=== PATIENT | female | born 1970 | race Caucasian/White ===

== ENCOUNTER → 2017-05-28 10:48 | Outpatient (POV) | payer MEDICAID, SELFPAY | PROVIDERS: Family Provider Internal Medicine Adolescent Medicine; PCP Internal Medicine Adolescent Medicine; Visit Provider Otolaryngology | DX: Z00.00 Encounter for general adult medical examination without abnormal findings (principal) ==

== ENCOUNTER → 2018-01-15 11:13 | Outpatient (CLI) | payer MEDICAID, SELFPAY ==
--- NOTE | 2018-01-15 11:19 | XR_ITS ---
XR foot RT min 3V HISTORY: ITS.REASON: BILAT FOOT PAIN ORDERING PHYSICIAN: Chni Bob MD PATIENT AGE: 47 years COMPARISON: None FINDINGS: No fracture or dislocation. No lytic or blastic change. There is normal mineralization.. The joint spaces are well-preserved. No significant degenerative/arthritic changes. No erosive changes evident. IMPRESSION: Negative, no acute finding
--- NOTE | 2018-01-15 11:19 | XR_ITS ---
XR foot LT min 3V HISTORY: ITS.REASON: BILAT FOOT PAIN ORDERING PHYSICIAN: Chin Bob MD PATIENT AGE: 47 years COMPARISON: None FINDINGS: There is minimal hallux valgus with minimal hypertrophic change of the distal aspect of the first metatarsal small calcaneal spur is present at 8 mm. No erosive change apparent IMPRESSION: Mild hallux valgus with bunion formation
[2018-01-15 12:50] LABS: Basophils % 0.5 % (0.1-2.0); Eosinophils # 0.1 K/mm3 (0.0-0.4); Eosinophils % 1.5 % (0.1-12.0); Hematocrit 47.9 % (37.0-47.0); Hemoglobin 15.2 g/dL (12.2-16.2); Lymphocytes # 1.3 K/mm3 (0.7-4.5); Lymphocytes % 19.7 % (10-50); Mean Corpuscular HGB Conc 31.7 g/dL (31.8-35.4); Mean Corpuscular Volume 94.8 fl (81-99); Mean Platelet Volume 7.8 fl (7.4-10.4); Monocytes # 0.4 K/mm3 (0.1-1.0); Monocytes % 5.7 % (1.7-9.3); Neutrophils # 4.7 K/mm3 (1.8-7.8); Neutrophils % 72.7 % (37.0-80.0); Platelet Count 230 K/mm3 (142-424); Red Blood Count 5.06 M/mm3 (4.20-5.40); Red Cell Distribution Width 13.4 % (11.5-17.5); White Blood Count 6.5 K/mm3 (4.8-10.8)
[2018-01-15 13:12] LABS: Alanine Aminotransferase 24 U/L (12-78); Albumin Level 3.7 gm/dL (3.4-5.0); Alkaline Phosphatase 79 U/L (46-116); Aspartate Amino Transferase 14 U/L (15-37); Bilirubin,Total 0.3 mg/dL (0.2-1.0); Blood Urea Nitrogen 13 mg/dL (7-18); Calcium 9.1 mg/dL (8.5-10.1); Carbon Dioxide 24 mmol/L (21.0-32.0); Chloride 104 mmol/L (98-107); Chol/HDL Ratio 4.8 (1-3.5); Cholesterol 187 mg/dL (140-200); Creatinine,Serum 0.69 mg/dL (0.55-1.02); Estimated Glomerular Filt Rate 91 ml/min (>60); GFR (African American) 110 ML/MIN (>60); Globulin 3.6 gm/dl (1.3-3.2); Glucose 98 mg/dL (74-106); HDL Cholesterol 39 mg/dL (29-89); LDL Cholesterol 135 mg/dL (0-130); Sodium 139 mmol/L (136-145); Total Protein,Serum 7.3 gm/dL (6.4-8.2); Triglycerides 67 mg/dL (30-200); VLDL Cholesterol 13 mg/dL (0-40)
[2018-01-16 18:15] LABS: Hemoglobin A1C 5.7 % (0.0-7.0)
== END ==
PROVIDERS: PCP Internal Medicine Adolescent Medicine; Referring Provider Nurse Practitioner Family; Visit Provider Internal Medicine Adolescent Medicine
DX: Z00.00 Encounter for general adult medical examination without abnormal findings (principal); M79.671 Pain in right foot; M79.672 Pain in left foot
CPT/HCPCS: 36415; 73630; 80053; 80061; 83036; 85025

== ENCOUNTER → 2019-10-28 14:06 | Outpatient (CLI) | payer BC, SELFPAY | PROVIDERS: PCP Internal Medicine Adolescent Medicine; Visit Provider Nurse Practitioner Family | DX: Z11.1 Encounter for screening for respiratory tuberculosis (principal) ==

== ENCOUNTER 2019-12-16 15:13 | Emergency (ER) | payer BC, SELFPAY ==
[2019-12-16 15:24] VITALS: BP 134/85; PULSE 80; RESP 18; TEMP 36.7; O2SAT 95; BMI 38.2
--- NOTE | 2019-12-16 15:33 | HMH.EDUTC ---
[facility] [place] Clinical Impression: Encounter for laboratory testing for COVID-19 virus Disposition: Home, Self-Care Condition on Discharge: Good Instructions: Preventing the Spread of Coronavirus Discharge Instructions Additional Instructions: You was tested for today for COVID19 your test result should be back later this evening, you may call back later this evening to see if your test results are back and the result You was given a handout with instructions for Self Quarantine and Self isolation for while you wait on test results and what to do if they are positive Referrals: Sinan Brown MD [Primary Care Provider] - As needed Forms: Work/School Release Time of Disposition: 15:36 Medical Decision Making - Carlos Inquiry Pt receiving controlled substance: No Carlos was queried for this patient: No Vital Signs: 12/16/19 15:24 Temperature 98.0 F Temperature Source Oral Pulse Rate [Radial] 80 Respiratory Rate 18 Blood Pressure [Right Arm] 134/85 Blood Pressure Mean [Right Arm] 101 Blood Pressure Source [Right Arm] Automatic Cuff Blood Pressure Position [Right Arm] Sitting 02 Sat by Pulse Oximetry 95 Oxygen Delivery Method Room Air Orders (Tests/Meds): ORDERS Category Date Time Status Covid-19 Nasal PCR ([facility]) Routine Lab 12/16/19 15:24 [place] [facility] [place] - General Stated complaint: wants Covid testing Time Seen by Provider: 12/16/19 15:33 Mode of Arrival: Ambulatory Source of Information: Patient Limitations: No Limitations Description of Symptoms (Recalled from Triage Doc. by RN): Was exposed to COVID on 12/03. Has been in quarantine since then. Place of employment is requiring a covid test in order to return to work. 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 States that she has been in quarantine at home and it has been 12 days and her work told her that she had be tested and have negative test before she can return to work - Related Data Home Medications Medication Instructions Recorded Confirmed atorvastatin 80 mg tablet PO 30 Days #30 tab 01/22/18 01/22/18 bisoprolol 10 PO 30 Days #30 tab 01/22/18 01/22/18 mg-hydrochlorothiazide 6.25 mg tablet clonazepam 0.5 mg tablet PO 30 Days #60 tab 01/22/18 01/22/18 naproxen 500 mg-esomeprazole 20 mg 1 tab PO BID 01/22/18 01/22/18 tablet,immediate and delay release Previous Rx's Medication Instructions Recorded methylprednisolone 4 mg tablets in See Rx Instructions PO PER PKG DIR 01/22/18 a dose pack #21 tab Allergies Allergy/AdvReac Type Severity Reaction Status Date / Time Sulfa (Sulfonamide Allergy Intermediate Unverified 01/22/18 10:00 Antibiotics) [SULFA (SULFONAMIDE ANTIBIOTICS)] - Worker's Comp Is this a Worker's Comp case?: No [facility] History - Hepatitis A Screen Drug use history?: No High risk sexual behaviors?: No History of sexually transmitted infection?: No Currently employed?: No Childcare worker?: No Do you have indoor plumbing?: Yes Do you have electricity?: Yes Attestation statement:: This patient has been screened for Hepatitis A risk factors. I have reviewed the patient's past medical history: Yes Medical History: Reports:: Anxiety, Hyperlipidemia, Hypertension Other Surgeries: Yes: No Previous Surgery - Social History Smoking Status: Current every day smoker Tobacco Type: cigarettes # Packs/Day (cigarettes): 1 Alcohol Intake: never Alcohol Intake Frequency:: holidays/special occasions only Occupational Status: employed - Psychiatric History Pschychiatric History:: Reports:: Anxiety Family Hx:: No significant family history YULIA Infante
[2019-12-16 15:45] VITALS: BP 134/85; PULSE 80; RESP 18; TEMP 36.7; O2SAT 95
== END 2019-12-16 15:45 | disposition home or self-care (01) ==
PROVIDERS: Emergency Provider Nurse Practitioner; PCP Internal Medicine Adolescent Medicine
DX: Z20.828 Contact with and (suspected) exposure to other viral communicable diseases (principal); F41.9 Anxiety disorder, unspecified; F17.210 Nicotine dependence, cigarettes, uncomplicated
CPT/HCPCS: 99201; U0003

== ENCOUNTER → 2020-08-02 15:56 | Outpatient (CLI) | payer BC, SELFPAY ==
--- NOTE | 2020-08-02 | XR_ITS ---
PROCEDURE: XR ANKLE LT MIN 3V CLINICAL INDICATION: Pain COMPARISON: No exams were available for comparison FINDINGS: No fracture or dislocation. No lytic or blastic change. There is normal mineralization. The joint spaces are well-preserved. No significant degenerative/arthritic changes. No erosive changes evident. Other findings:Mild lateral soft tissue swelling. Prominent calcaneal spur IMPRESSION: Mild soft tissue swelling laterally otherwise negative Dictated by: Ricky Sutton MD 08/02/2020 17:13 Ricky Sutton MD in OV 08/02/2020 17:13
== END ==
PROVIDERS: PCP Nurse Practitioner Family; Visit Provider Internal Medicine Adolescent Medicine
DX: M25.572 Pain in left ankle and joints of left foot (principal)
CPT/HCPCS: 73610

== ENCOUNTER 2020-08-09 16:51 | Outpatient (RCR) | payer BC, SELFPAY | END 2020-08-09 17:45 | disposition home or self-care (01) | LOC: PT 16:51 | PROVIDERS: Visit Provider Nurse Practitioner Family | DX: S93.402A Sprain of unspecified ligament of left ankle, initial encounter (principal) ==

== ENCOUNTER 2020-09-05 09:13 | Emergency (ER) | payer BC, SELFPAY ==
[2020-09-05 09:14] VITALS: BP 146/95; PULSE 75; RESP 18; TEMP 36.6; O2SAT 97; BMI 39.6
--- NOTE | 2020-09-05 10:16 | HMH.EDUTC ---
[facility] [place] Clinical Impression: Bronchitis Sinusitis Qualifiers: Sinusitis location: unspecified location Chronicity: acute Recurrence: non-recurrent Qualified Code(s): J01.90 - Acute sinusitis, unspecified Otitis media Qualifiers: Otitis media type: suppurative Chronicity: acute Laterality: bilateral Recurrence: non-recurrent Spontaneous tympanic membrane rupture: without spontaneous rupture Qualified Code(s): H66.003 - Acute suppurative otitis media without spontaneous rupture of ear drum, bilateral Disposition: Home, Self-Care Condition on Discharge: Good Instructions: DI for Sinusitis, DI for Acute Bronchitis Additional Instructions: Drink plenty of fluids. Take tylenol or ibuprofen for pain or fever. Take the medications as directed. Follow up with your regular doctor. GO TO THE ER FOR ANY WORSENING SYMPTOMS Prescriptions: Amoxicillin/Potassium Clav [Augmentin 875-125 Tablet] 1 tab PO Q12H 10 Days #20 tab Transmission Status: Received by [facility] guaiFENesin [Mucinex 600mg tablet] 1 - 2 tab PO BIDP PRN #30 tab.er.12h PRN Reason: Congestion Transmission Status: Received by [facility] Benzonatate [Tessalon Perle 100mg Cap] 100 mg PO TIDP PRN #30 cap PRN Reason: Cough Transmission Status: Received by [facility] Referrals: Sinan Brown MD [Primary Care Provider] - Forms: Work/School Release Time of Disposition: 10:18 Medical Decision Making - Medical Records Medical records reviewed: No: I reviewed the patient's medical records. - Carlos Inquiry Pt receiving controlled substance: No Vital Signs: 09/05/20 09:14 09/05/20 10:22 Temperature 97.9 F 97.9 F Temperature Source Temporal Artery Scan Pulse Rate 79 Pulse Rate [Left] 75 Respiratory Rate 18 16 Blood Pressure 142/95 H Blood Pressure [Right Arm] 146/95 H Blood Pressure Mean [Right Arm] 112 Blood Pressure Source Automatic Cuff Blood Pressure Source [Right Arm] Automatic Cuff 02 Sat by Pulse Oximetry 97 Oxygen Delivery Method Room Air [facility] [place] HPI - General Stated complaint: congestion, rt ear pain Time Seen by Provider: 09/05/20 09:25 Mode of Arrival: Ambulatory Source of Information: Patient Limitations: No Limitations Description of Symptoms (Recalled from Triage Doc. by RN): pt c/o head congestion, a productive cough with clear sputum, R ear pain (feels clogged) and she can't hear out of it. pt has been vaccinated for covid. HEENT Symptoms (Recalled from RN notes): Yes (R ear pain and loss of hearing. sinus congestion,) Resp Symptoms (Recalled from RN notes): Yes (productive cough with clear sputum) Skin Symptoms (Recalled from RN notes): No MS Symptoms (Recalled from RN notes): No Functional Status (Recalled from RN notes): na - History of Present Illness Provider Complaint: She c/o right ear pain and pressure for the past 2 days. She has also had sinus congestion. She denies any fever/chills. She has had a cough, but she denies significant chest congestion. - Related Data Home Medications Medication Instructions Recorded Confirmed atorvastatin 80 mg tablet PO 30 Days #30 tab 01/22/18 01/22/18 bisoprolol 10 PO 30 Days #30 tab 01/22/18 01/22/18 mg-hydrochlorothiazide 6.25 mg tablet clonazepam 0.5 mg tablet PO 30 Days #60 tab 01/22/18 01/22/18 naproxen 500 mg-esomeprazole 20 mg 1 tab PO BID 01/22/18 01/22/18 tablet,immediate and delay release Previous Rx's Medication Instructions Recorded methylprednisolone 4 mg tablets in See Rx Instructions PO PER PKG DIR 01/22/18 a dose pack #21 tab Amoxicillin/Potassium Clav 1 tab PO Q12H 10 Days #20 tab 09/05/20 [Augmentin 875-125 Tablet] Benzonatate [Tessalon Perle 100mg 100 mg PO TIDP PRN #30 cap 09/05/20 Cap] guaiFENesin [Mucinex 600mg tablet] 1 - 2 tab PO BIDP PRN #30 09/05/20 tab.er.12h Allergies Allergy/AdvReac Type Severity Reaction Status Date / Time Sulfa (Sulfon
[2020-09-05 10:22] VITALS: BP 142/95; PULSE 79; RESP 16; TEMP 36.6
== END 2020-09-05 10:31 | disposition home or self-care (01) ==
PROVIDERS: Emergency Provider Nurse Practitioner Family; PCP Internal Medicine Adolescent Medicine
DX: J20.9 Acute bronchitis, unspecified (principal); J01.90 Acute sinusitis, unspecified; H66.003 Acute suppurative otitis media without spontaneous rupture of ear drum, bilateral; F17.210 Nicotine dependence, cigarettes, uncomplicated
CPT/HCPCS: 99202; G0463

== ENCOUNTER → 2021-03-13 14:23 | Outpatient (CLI) | payer BC, SELFPAY | PROVIDERS: PCP Internal Medicine Adolescent Medicine; Visit Provider Nurse Practitioner | DX: Z20.822 Contact with and (suspected) exposure to COVID-19 (principal) | CPT/HCPCS: C9803; U0003; U0005 ==

== ENCOUNTER → 2021-04-03 13:38 | Outpatient (CLI) | payer BC, SELFPAY | PROVIDERS: Visit Provider Nurse Practitioner | DX: Z20.822 Contact with and (suspected) exposure to COVID-19 (principal) | CPT/HCPCS: C9803; U0003; U0005 ==

== ENCOUNTER 2021-10-20 11:26 | Emergency (ER) | payer BC, SELFPAY ==
[2021-10-20 11:42] VITALS: BP 144/78; PULSE 65; RESP 16; TEMP 36.7; O2SAT 99; BMI 41.5
[2021-10-20 11:44] VITALS: BP 144/78; PULSE 65; RESP 16; TEMP 36.7
== END 2021-10-20 11:44 | disposition home or self-care (01) ==
LOC: UTC 11:29
PROVIDERS: Emergency Provider Nurse Practitioner Family; PCP Internal Medicine Adolescent Medicine
DX: Z03.89 Encounter for observation for other suspected diseases and conditions ruled out (principal); Z11.1 Encounter for screening for respiratory tuberculosis; E66.01 Morbid (severe) obesity due to excess calories; F17.210 Nicotine dependence, cigarettes, uncomplicated; Z68.41 Body mass index [BMI] 40.0-44.9, adult
CPT/HCPCS: 90471; 99213; G0463

== ENCOUNTER 2023-06-02 21:02 | Emergency (ER) | payer BC, SELFPAY ==
[2023-06-02 21:07] VITALS: BP 181/99; PULSE 78; RESP 16; TEMP 36.8; O2SAT 94; BMI 36.1
--- NOTE | 2023-06-02 21:17 | ED_ITS ---
<Statement entered by Baltazar Granado MD - 06/02/23 23:00> I was consulted by the ANA, and we discussed the complexity of the problems being addressed. I approved the treatment and management plan for this patient's care in the emergency department, thus performing a substantive portion of the medical decision making. Baltazar Granado MD Discharge Plan Disposition Patient Disposition: Home, Self-Care Condition: Good Prescriptions Prescriptions: New cephalexin 500 mg capsule 500 mg PO BID 10 Days Qty: 20 0RF No Action bisoprolol-hydrochlorothiazide 10-6.25 mg tablet PO 30 Days Qty: 30 atorvastatin 80 mg tablet PO 30 Days Qty: 30 clonazepam 0.5 mg tablet PO 30 Days Qty: 60 Vimovo 500-20 mg tablet,IR,delayed rel,biphasic 1 tab PO BID methylprednisolone 4 mg tablets,dose pack See Rx Instructions PO PER PKG DIR Qty: 21 0RF Dose Instruction: PO PER PKG DIR Rx Instructions: PO PER PKG DIR benzonatate 100 MG capsule 100 mg PO TIDP PRN (Reason: Cough) Qty: 30 0RF amoxicillin-pot clavulanate 1 EACH tablet 1 tab PO Q12H 10 Days Qty: 20 0RF guaifenesin 600 MG tablet extended release 12hr 1 - 2 tab PO BIDP PRN (Reason: Congestion) Qty: 30 0RF Referrals Follow up/Referrals: Sinan Brown MD [Primary Care Provider] - See instructions Activity Restrictions/Add. Instructions Additional Instructions/Restrictions: Keep wound clean dry and covered with nonocclusive dressing. Return to the ER or PCP for redness swelling drainage or increasing pain. Stitches can be removed in 14 days Clinical Impressions Clinical Impression: Laceration Instructions Patient Instructions: DI for Laceration Repair Discharge ED Provider: Baltazar Granado General Adult HPI General Chief complaint: Wound/Laceration Stated complaint: AO03@2030 LT hand lac Time Seen by Provider: 06/02/23 21:17 Mode of Arrival: Family Vehicle Source of Information: Patient Limitations: No Limitations Description of Symptoms (Recalled from ER Triage Doc. by RN): left hand laceration from a knife hidden in the water while she was washing dishes History of Present Illness HPI narrative: Patient presents for evaluation of left fifth laceration that occurred while she was washing dishes. Patient was able to get the bleeding stopped. She reports no loss of sensation motor, flexion or extension loss. Related Data Home Medications Medication Instructions Recorded Confirmed atorvastatin 80 mg tablet PO 30 days #30 tabs 01/22/18 01/22/18 bisoprolol 10 PO 30 days #30 tabs 01/22/18 01/22/18 mg-hydrochlorothiazide 6.25 mg tablet clonazepam 0.5 mg tablet PO 30 days #60 tabs 01/22/18 01/22/18 naproxen 500 mg-esomeprazole 20 mg 1 tab PO BID 01/22/18 01/22/18 tablet,immediate and delay release (Vimovo) Previous Rx's Medication Instructions Recorded methylprednisolone 4 mg tablets in See Rx Instructions PO PER PKG DIR 01/22/18 a dose pack Pain, swelling #21 tabs amoxicillin 875 mg-potassium 1 tab PO Q12H 10 days #20 tabs 09/05/20 clavulanate 125 mg tablet benzonatate 100 mg capsule 100 mg PO TIDP PRN Cough #30 caps 09/05/20 guaifenesin 600 mg tablet, 1 - 2 tab PO BIDP PRN Congestion 09/05/20 extended release 12 hr ##30 cephalexin 500 mg capsule 500 mg PO BID 10 days #20 caps 06/02/23 Allergies Allergy/AdvReac Type Severity Reaction Status Date / Time Sulfa (Sulfonamide Allergy Intermediate Verified 09/05/20 09:37 Antibiotics) [SULFA (SULFONAMIDE ANTIBIOTICS)] [facility] Disclaimer: The information contained in this section may have been updated after the patient was seen, as this information can be updated by other users. Social History Smoking Status: Unknown if ever smoked alcohol intake: never current occupational status: employed Travel in the last 8 weeks: None ROS Obtained: Yes Systems reviewed as appropriate & no additional complaints ex cept as documented Physical Exam General General appearance: alert and in no apparent distress Respiratory Respiratory exam: Present normal lung sounds bilaterally; Absent respiratory distress Cardiovascular Cardiovascular exam: Present regular rate and normal rhythm Neurological Exam Neurological exam: Present alert and oriented X3 Other Other exam information: Patient has a linear laceration at the MCP medially of the fifth left digit. Patient has full motor and sensory flexion and extension. The remainder of the skin exam is pink warm and dry, remainder of the musculoskeletal exam is within normal limits Medical Decision Making Medical Records Medical records reviewed: Yes I reviewed the patient's medical records. Carlos Inquiry Pt receiving controlled substance: No Vital Signs: 06/02/23 21:07 Temperature 98.2 F Temperature Source Oral Pulse Rate [Right Brachial] 78 Respiratory Rate 16 Blood Pressure [Right Arm] 181/99 H Blood Pressure Mean [Right Arm] 126 Blood Pressure Source [Right Arm] Automatic Cuff Blood Pressure Position [Right Arm] Sitting 02 Sat by Pulse Oximetry 94 L Oxygen Delivery Method Room Air Orders (Tests/Meds): ED MEDICATIONS Generic Name Dose Route Start Last Admin Trade Name Freq PRN Reason Stop Dose Admin Tetanus/Reduced Diphtheria/Acell Pertussis 0.5 ml 06/02/23 22:13 Tet/Diphth/Pert-Adult 0.5ml Syringe IM 06/02/23 22:14 .ONCE ONE Medical Decision Narrative: In summary patient is a 52-year-old female who presents to the emergency department for evaluation of laceration of the left 5th finger. Patient is dyn amically stable upon arrival, febrile. Physical exam is remarkable for a laceration just distal to the fifth MCP joint of the left hand. Patient is neurovascular intact distally. Differential diagnosis includes simple laceration versus tendon involvement versus nerve injury versus joint intrusion etc. Digital nerve block was performed with 10 cc of lidocaine. Wounds were primarily repaired with four 4-0 nylon stitches in a simple interrupted fashion. Patient to follow-up in 14 days for suture removal with PCP or return to ED. Patient has a prescription for Keflex called into her pharmacy. Procedures Laceration Laceration 1: Site: finger Side (If applicable): left Size (cm): 2 Description: linear Depth: simple, single layer Local Anesthetic: lidocaine 1% (Digital nerve block) Amount of anesthesia used (mL): 10 Pre-repair: wound explored, irrigated extensively and deep structures intact Skin layer closed with: nylon Size (cm): 4-0 Number of sutures: 4 Technique: simple, interrupted Critical Care Critical Care Time Critical Care Time: No
[2023-06-02] MEDS: TET/DIPHTH/PERT-ADULT 0.5ML SYRINGE 0.5 ML IM (22:34)
[2023-06-02 22:41] VITALS: BP 132/70; PULSE 69; RESP 18; TEMP 36.6; O2SAT 96
== END 2023-06-02 22:43 | disposition home or self-care (01) ==
PROVIDERS: Emergency Provider Emergency Medicine; PCP Internal Medicine Adolescent Medicine
DX: S61.217A Laceration without foreign body of left little finger without damage to nail, initial encounter (principal); W26.0XXA Contact with knife, initial encounter; Z23 Encounter for immunization
CPT/HCPCS: 12001; 90471; 90715; 99283

== ENCOUNTER 2023-07-31 09:12 | Emergency (ER) | payer BC, SELFPAY ==
[2023-07-31 09:20] VITALS: BP 166/82; PULSE 66; RESP 18; TEMP 36.9; O2SAT 96; BMI 36.1
--- NOTE | 2023-07-31 09:31 | ED_ITS ---
Discharge Plan Disposition Patient Disposition: Home, Self-Care Condition: Good Prescriptions Prescriptions: New azithromycin [Zithromax] 250 mg tablet 250 mg PO UD DOSE PK Qty: 6 0RF Rx Instructions: Take two (2) tablets today, then one (1) tablet days #2 thru #5 benzonatate 100 mg capsule 100 mg PO TIDP PRN (Reason: Cough) Qty: 30 0RF methylprednisolone 4 mg Tablets,Dose Pack 4 mg PO DIRECTED 6 Days Qty: 21 0RF Rx Instructions: Take 1 pack as directed for 6 days No Action bisoprolol-hydrochlorothiazide 10-6.25 mg tablet 1 tab PO DAILY 30 Days Qty: 30 atorvastatin 80 mg tablet 80 mg PO DAILY 30 Days Qty: 30 clonazepam 0.5 mg tablet 0.5 mg PO BID 30 Days Qty: 60 Vimovo 500-20 mg tablet,IR,delayed rel,biphasic 1 tab PO BID venlafaxine 37.5 mg capsule,extended release 24hr 37.5 mg PO DAILY fenofibrate 54 mg tablet 54 mg PO DAILY Referrals Follow up/Referrals: Sinan Brown MD [Primary Care Provider] - See instructions Activity Restrictions/Add. Instructions Additional Instructions/Restrictions: Drink plenty of fluids. Take tylenol or ibuprofen for pain or fever. Take the medications as directed. Follow up with your regular doctor. GO TO THE ER FOR ANY WORSENING SYMPTOMS Clinical Impressions Clinical Impression: Bronchitis Sinusitis Qualifiers: Sinusitis location: unspecified location Chronicity: acute Recurrence: non- recurrent Qualified Code(s): J01.90 - Acute sinusitis, unspecified Instructions Patient Instructions: Sinusitis, DI for Sinusitis Discharge ED Provider: Chin Uriarte [facility] General Stated complaint: sore throat, cough, headache Mode of Arrival: Ambulatory Source of Information: Patient Limitations: No Limitations Time Seen by Provider: 07/31/23 09:29 Description of Symptoms (Recalled from Triage Doc. by RN): Pt's symptoms are body aches, cough, low grade fever, and fatigue. HEENT Symptoms (Recalled from RN notes): Yes Resp Symptoms (Recalled from RN notes): No Skin Symptoms (Recalled from RN notes): No MS Symptoms (Recalled from RN notes): No Functional Status (Recalled from RN notes): n/a History of Present Illness Provider Complaint: She states that for the past 2 days she has had sinus congestion, chest congestion, low grade fever, and malaise. Related Data Home Medications Medication Instructions Recorded Confirmed atorvastatin 80 mg tablet 80 mg PO DAILY 30 days #30 tabs 01/22/18 07/31/23 bisoprolol 10 1 tab PO DAILY 30 days #30 tabs 01/22/18 07/31/23 mg-hydrochlorothiazide 6.25 mg tablet clonazepam 0.5 mg tablet 0.5 mg PO BID 30 days #60 tabs 01/22/18 07/31/23 naproxen 500 mg-esomeprazole 20 mg 1 tab PO BID 01/22/18 07/31/23 tablet,immediate and delay release (Vimovo) fenofibrate 54 mg tablet 54 mg PO DAILY 07/31/23 07/31/23 venlafaxine 37.5 mg 37.5 mg PO DAILY 07/31/23 07/31/23 capsule,extended release 24 hr Previous Rx's Medication Instructions Recorded azithromycin 250 mg tablet 250 mg PO UD DOSE PK #6 tabs 07/31/23 (Zithromax) benzonatate 100 mg capsule 100 mg PO TIDP PRN Cough #30 caps 07/31/23 methylprednisolone 4 mg tablets in 4 mg PO DIRECTED 6 days #21 tabs 07/31/23 a dose pack Allergies Allergy/AdvReac Type Severity Reaction Status Date / Time Sulfa (Sulfonamide Allergy Intermediate Verified 07/31/23 09:28 Antibiotics) [SULFA (SULFONAMIDE ANTIBIOTICS)] Worker's Comp Is this a Worker's Comp case?: No [facility] Disclaimer: The information contained in this section may have been updated after the patient was seen, as this information can be updated by other users. Social History Smoking Status: Unknown if ever smoked alcohol intake: never current occupational status: employed Travel in the last 8 weeks: None ROS Obtained: Yes All systems reviewed & no additional complaints except as documented Constitutional Constitutional: Reports as per HPI and Reports poor appetite Eyes Eyes: Reports system reviewed and no additional complaints, except as documented ENT Ears, Nose, Mouth, and Throat: Reports as per HPI Cardiovascular Cardiovascular: Reports system reviewed and no additional complaints, except as documented and Denies chest pain Respiratory Respiratory: Denies shortness of breath, Reports chest congestion, Reports cough, Denies stridor and Denies wheezing Gastrointestinal Gastrointestingal: Reports system reviewed and no additional complaints, except as documented; Denies abdominal pain, diarrhea or vomiting Musculoskeletal Musculoskeletal: Reports system reviewed and no additional complaints, except as documented and Denies arthralgias Integumentary/Breasts Skin/Breast: Reports system reviewed and no additional complaints, except as documented and Denies rash Neurologic Neurologic: Denies paresthesias Allergic/Immunologic Allergic/Immunologic: Denies wheezing Physical Exam General General appearance: alert and in no apparent distress Eye Eye exam: Present normal appearance, PERRL and EOMI ENT ENT exam: Present mucous membranes moist and normal external ear exam Expanded ENT Exam External ear exam: Present normal external inspection TM/Canal exam: Bilateral TM: erythema and bulging Nose exam: Absent sinus tenderness Nasal speculum exam: Bilateral: normal Mouth exam: Present normal external inspection; Absent drooling Teeth exam: Present normal inspection Throat exam: Present tonsillar erythema and tonsillomegaly Neck Neck exam: Present normal inspection, full ROM and trachea midline; Absent tenderness, lymphadenopathy or thyromegaly Chest Chest inspection: Present normal inspection and symmetric chest wall rise; Abs ent tenderness or rash Respiratory Respiratory exam: Present normal lung sounds bilaterally; Absent respiratory distress, wheezes, stridor or accessory muscle use Cardiovascular Cardiovascular exam: Present regular rate, normal rhythm and normal heart sounds Abdominal Exam Abdominal exam: Present soft; Absent distention, tenderness, guarding, rebound or rigidity Extremities Exam Extremities exam: Present normal inspection, full ROM and normal capillary refill; Absent tenderness or calf tenderness Back Exam Back exam: Present normal inspection and full ROM; Absent tenderness Neurological Exam Neurological exam: Present alert and oriented X3 Psychiatric Psychiatric exam: Present normal affect and normal mood Skin Skin exam: Present warm, dry, intact and normal color Lymphatic Lymphatic Findings: no adenopathy Medical Decision Making Medical Records Medical records reviewed: No I reviewed the patient's medical records. Carlos Inquiry Pt receiving controlled substance: No Vital Signs: 07/31/23 09:20 Temperature 98.5 F Temperature Source Oral Pulse Rate [Right Radial] 66 Respiratory Rate 18 Blood Pressure [Right Arm] 166/82 H Blood Pressure Mean [Right Arm] 110 Blood Pressure Source [Right Arm] Automatic Cuff Blood Pressure Position [Right Arm] Sitting 02 Sat by Pulse Oximetry 96 Oxygen Delivery Method Room Air
[2023-07-31 09:41] LABS: UTC Influenza A Antigen Negative (Negative); UTC Influenza B Antigen Negative (Negative)
[2023-07-31 10:24] VITALS: BP 166/82; PULSE 66; RESP 18; TEMP 36.9; O2SAT 96
== END 2023-07-31 10:24 | disposition home or self-care (01) ==
PROVIDERS: Emergency Provider Nurse Practitioner Family; PCP Internal Medicine Adolescent Medicine
DX: J40 Bronchitis, not specified as acute or chronic (principal); J01.90 Acute sinusitis, unspecified; J02.9 Acute pharyngitis, unspecified; R05.9 Cough, unspecified; R51.9 Headache, unspecified; R50.9 Fever, unspecified; R53.83 Other fatigue; R53.81 Other malaise; R09.89 Other specified symptoms and signs involving the circulatory and respiratory systems
CPT/HCPCS: 87804; 99212; 99214; G0463